=== PATIENT | male | born 1995 | race Caucasian/White ===

== ENCOUNTER 2016-07-13 13:54 | Emergency (ER) | payer BC ==
[~2016-07-13] VITALS: Ht 188 cm; Wt 85.3 kg
[2016-07-13 13:58] VITALS: Ht 188 cm; Wt 85.3 kg
[2016-07-13] MEDS ORDERED: XYLOCAINE 1%/SOD BICARB 20 ML VIAL INFIL ONE (14:57)
[2016-07-13 15:45] VITALS: BP 118/77; PULSE 77; TEMP 36.9; O2SAT 96
--- NOTE | 2016-07-21 21:10 | EMERGENCY ROOM VISIT NOTE ---
ED Visit Note First contact with patient: 14:28 Chief complaint: Chin laceration HPI: This 20-year-old white male presents for evaluation of a laceration on his chin. The patient was walking up some steps last night and slipped, falling forward. He struck his chin on the stairs. He did not think it was that bad last evening. Bleeding was controlled with pressure. They deny any numbness, tingling, or loss of consciousness. No nausea, vomiting, or headache. He denies any jaw pain. He woke up this morning and realized that the laceration was bigger than he first thought. No other complaints. Tetanus is believed to be up-to-date. Pain is 0/10. Supplemental sheet was reviewed. Previous surgeries: None Medical history: Benign Current Medications: None Allergies: NKDA Tetanus: Within 10 years Family History: Noncontributory Social History: [employer] student. Single. Positive EtOH use. REVIEW OF SYSTEM: HEENT: No dizziness, visual problems, hearing loss, or tinnitus. There is no difficulty swallowing and no oral lesions are present. PULMONARY: No cough, shortness of breath, sputum production or hemoptysis. CARDIOVASCULAR: No chest pain, palpitations, shortness of breath or peripheral edema. GASTROINTESTINAL: No diarrhea, constipation, nausea, vomiting, or abdominal pain. GENITOURINARY: No dysuria, frequency, urgency or nocturia. NEUROLOGIC: No weakness, muscle tenderness, epilepsy or history of neurological problems. MUSCULOSKELETAL: No history of joint tenderness/swelling. No history of arthritis or arthralgias. SKIN: No rashes or lesions. ENDOCRINE: No history of diabetes, thyroid disorders, or abnormal hair growth. Physical Exam: Vitals: Afebrile. Reviewed and filed in patient's chart General: Well-developed, well-nourished, young white male, in no acute distress. No obvious discomfort. He is sitting on the bed. Alert and oriented. Skin: Warm and dry with good turgor. No rashes. No ecchymosis or erythema. The patient is not diaphoretic. No abrasions. The patient has a 2 centimeter laceration present on his chin. HEENT: Normocephalic. Eyes PERRLA, EOMI. No conjunctiva or scleral injection. Nares patent bilaterally without turbinate enlargement. No significant drainage. No epistaxis. Oropharynx without erythema or exudate. Uvula midline , oral mucosa moist. No lesions present. No chipped or broken teeth. No malalignment. No pain with palpation over the mandible. Musculoskeletal: Full range of motion of his neck without discomfort. No pain with palpation over the midline of the cervical spine. Neurologic: Gross sensation is intact across the face by soft touch. Impression: 2 cm chin laceration Procedure: Informed oral consent was obtained for repair. Chin was prepped with Betadine and draped with a sterile towel. Area was anesthetized using 1% plain buffered lidocaine in a direct infiltration. Thorough inspection was performed. There is no foreign material present. Wound was irrigated using normal sterile saline under jet spray lavage. Wound was closed using 5-0 nylon. Excellent wound edge approximation was achieved. Hemostasis was achieved. Plan: Patient was educated regarding today's findings. Conservative care measures were discussed. Cleanse the wound daily with soap and water and reapply a small amount of bacitracin. Ice and elevate intermittently as needed for discomfort. Tylenol and ibuprofen every 6 hours as needed for pain. Wound care handout was provided. Sutures out in 7-8 days. He may shower. Avoid soaking or swimming for two weeks. Return to the ER for any acute changes or signs of infection. He was reassured that I do not suspect dental injury or mandible fracture. Current/Historical Medications No Active Prescriptions or Reported Meds Allergies Coded Allergies: No Known Allergies (Unverified , 07/13/16) Vital Signs Date Time Temp Pulse Resp B/P Pulse Ox O2 Delivery O2 Flow Rate FiO2 07/13/16 15:45 36.9 77 18 118/77 96 07/13/16 15:43 77 18 118/77 96 Room Air 07/13/16 13:58 36.9 79 18 124/70 94 Room Air Departure Information Impression Primary Impression: Chin laceration Dispostion Home / Self-Care Condition GOOD Prescriptions No Active Prescriptions or Reported Meds Referrals [facility] Forms HOME CARE DOCUMENTATION FORM, Clean wound with;: soap and water Number of times/day to clean wound: 1 Coat wound with: antibiotic ointment Suture removal in how many days: 7-8 MOTRIN USE, TYLENOL USE, WOUND CARE INSTRUCTIONS, IMPORTANT VISIT INFORMATION Patient Instructions My [facility] Additional Instructions Cleanse the wound daily with soap and water Avoid swimming or soaking for 2 weeks you may shower and wash your face Tylenol and Motrin every 6 hours as needed for discomfort Sutures out in 7-8 days Return to the ED for any acute changes or signs of infection
== END 2016-07-13 15:46 | disposition home or self-care (01) ==
LOC: C.EDB 13:56 → C.EDD 15:46
DX: S01.81XA Laceration without foreign body of other part of head, initial encounter (principal); W10.9XXA Fall (on) (from) unspecified stairs and steps, initial encounter

== ENCOUNTER 2016-07-22 17:53 | Emergency (ER) | payer BC ==
[~2016-07-22] VITALS: Ht 188 cm; Wt 86.7 kg
[2016-07-22 18:09] VITALS: BP 142/76; PULSE 61; TEMP 37.2; O2SAT 97; Ht 188 cm; Wt 86.7 kg
--- NOTE | 2016-07-22 20:16 | EMERGENCY ROOM VISIT NOTE ---
ED Visit Note First contact with patient: 18:12 CHIEF COMPLAINT: Suture removal This patient returns to the ED today for removal of sutures that were placed 8 days ago. There has been no swelling, redness, or drainage from the wound. The patient feels like the laceration is healing well. REVIEW OF SYSTEMS: Head: No headache, injury or neck pain. Skin: No rash, new lesions, or masses. General: No fever or chills, fatigue, loss of appetite , or significant recent weight gain or loss. PMH: The patient is healthy; there is no significant medical or surgical history. SOCIAL HISTORY: Patient lives at home. PHYSICAL EXAM: Vital Signs: Reviewed Nurse's notes. There is a sutured wound on the chin with no signs of infection. There is no erythema, swelling, or tenderness. EMERGENCY DEPARTMENT COURSE: The sutures were removed without any difficulty and there was no separation of the wound edges. DIAGNOSIS: Healing laceration and suture removal DISCHARGE INSTRUCTIONS AND TREATMENT: Wash any remaining crusts off of the wound today and resume your normal activities. Current/Historical Medications No Active Prescriptions or Reported Meds Allergies Coded Allergies: No Known Allergies (Unverified , 07/13/16) Vital Signs Date Time Temp Pulse Resp B/P Pulse Ox O2 Delivery O2 Flow Rate FiO2 07/22/16 18:09 37.2 61 18 142/76 97 Room Air Departure Information Impression Primary Impression: Encounter for removal of sutures Dispostion Home / Self-Care Condition FAIR Prescriptions No Active Prescriptions or Reported Meds Referrals No Doctor, Assigned (PCP) Forms HOME CARE DOCUMENTATION FORM, IMPORTANT VISIT INFORMATION [facility]
== END 2016-07-22 18:46 | disposition home or self-care (01) ==
LOC: C.EDB 17:54 → C.EDD 18:46
DX: S01.81XD Laceration without foreign body of other part of head, subsequent encounter (principal); X58.XXXD Exposure to other specified factors, subsequent encounter

== ENCOUNTER 2016-09-19 12:00 | Emergency (ER) | payer BC ==
[~2016-09-19] VITALS: Ht 190.5 cm; Wt 81.3 kg
[2016-09-19 12:07] VITALS: TEMP 36.5; Ht 190.5 cm; Wt 81.3 kg
[2016-09-19] MEDS ORDERED: AMPH10TA2 PO (12:21)
--- NOTE | 2016-09-19 12:36 | EMERGENCY ROOM VISIT NOTE ---
History First contact with patient: 12:17 Chief Complaint: REFERRED BY DOCTOR Stated Complaint: DOC REQUESTED DRUG TEST FOR MEDS History of Present Illness The patient is a 21 year old male who presents to the Emergency Room via private vehicle with complaints of "doc requested drug test for meds". The patient states that he is to have an appointment tomorrow to further his Adderall prescription and prior to doing so he was to have a drug test, EKG and potential liver tests of which were ordered and he was provided a piece of paper for this. He states that he lost the piece of paper and is concerned that if he goes to his appointment tomorrow without having these completed he may not be able to continue the medication. He is here seeking potential testing. He notes that he attends the [facility] and [place]. He has appointment tomorrow at 1045. He notes that his doctor is Dr. Dulce Brian. He denies any other ailments, questions or concerns. Review of Systems A complete 6-point Review of Systems was discussed with the patient, with pertinent positives and negatives listed in the History of Present Illness. All remaining Review of Systems questions can be considered negative unless otherwise specified. Past Medical/Surgical History Unremarkable Family History Unremarkable Social History Smoking Status: Never Smoker Social History: Patient lives with friends, denies tobacco use and admits to alcohol use. Current/Historical Medications Scheduled Amphetamine-Dextroamphetamine 10MG (Adderall 10MG), 10 MG PO QDL Allergies Coded Allergies: No Known Allergies (Unverified , 09/19/16) Physical Exam Vital Signs Date Time Temp Pulse Resp B/P Pulse Ox O2 Delivery O2 Flow Rate FiO2 09/19/16 12:42 67 18 120/71 98 09/19/16 12:07 36.5 81 18 116/88 98 Room Air Physical Exam VITAL SIGNS - Vital signs and nursing notes were reviewed. GENERAL -21-year-old male appearing his stated age who is in no acute distress. Communicates well with provider and answers questions appropriately. LUNGS - Chest wall symmetric without accessory muscle use, intercostals retractions, or central cyanosis. Normal vesicular breath sounds CTA B/L. No wheezes, rales, or rhonchi appreciated. CARDIAC - RRR with S1/S2. No murmur, rubs, or gallops appreciated. Medical Decision & Procedures Medical Decision Patient was seen and evaluated as above. He is here seeking assistance for potential testing that is required for continuation of his medication. He states that he is here because he lost the order for the testing. I did obtain consent and then spoke with one of the personnel at the office of [facility] psychiat[facility]. I explained to them the situation as well as inform the patient that I concerned for the tests here however concerned that he may be stuck with a large bill for all of the testing because it was performed in the emergency department. I again now however informed him that I be more than happy to order them. After speaking with the individual from the office I did relay this information and expressed my concern and they indicated that the patient may certainly show to his appointment tomorrow at 1045 and that they could manage it from there. I informed the patient this and still offered him the testing, but he decided to forego the testing at this time and just go to the appointment tomorrow. I do believe this is reasonable. He denied any other questions, concerns or ailments. Patient was discharged from the emergency Department. Impression Primary Impression: Encounter for medical testing Departure Information Dispostion Home / Self-Care Condition GOOD Referrals No Doctor, Assigned (PCP) Patient Instructions My [facility] Additional Instructions You were seen in the emergency department today for potential testing for your medication. After thorough discussion, and talking to the receptionist clerk at your doctor's office it was recommended you keep your appointment tomorrow morning at 10:45 AM and they will rewrite the order for the testing. Please return to the emergency department with any new/concerning symptoms.
[2016-09-19 12:42] VITALS: BP 120/71; PULSE 67; O2SAT 98
== END 2016-09-19 12:43 | disposition home or self-care (01) ==
LOC: C.EDB 12:01 → C.EDD 12:43
DX: Z02.83 Encounter for blood-alcohol and blood-drug test (principal)